=== PATIENT | female | born 1955 | race Caucasian/White ===

== ENCOUNTER → 2024-12-20 | Outpatient (CLI) | payer MEDICARE ==
--- NOTE | 2025-01-07 22:01 | CE ---
CARDIAC ELECTROPHYSIOLOGY REPORT STUDY: A 7-day Holter monitor. INDICATION: Rule out cardiac arrhythmia. The patient was monitored for 7 days. The baseline rhythm appeared to be sinus mechanism with average heart rate of 80 beats per minute, minimum heart rate of 62 beats per minute and maximum heart rate of 219 beats per minute. Rare PACs noted. The patient did have multiple episodes of paroxysmal atrial tachycardia with the longest episode of 60 beats with a fast heart rate of 220 beats per minute. PVCs were rare. The patient did have 1 episode of nonsustained ventricular tachycardia of 9 beats only. CONCLUSION: 1. Sinus rhythm as a baseline mechanism. 2. The patient did have only 1 episode of nonsustained ventricular tachycardia. 3. The patient did have a total of 17 episodes of paroxysmal atrial tachycardia with the longest episode of 50 beats and with a fast heart rate of 219 beats per minute. 4. No significant sinus pause or sinus arrest. MMODL / IJN: [id number] /
== END | disposition home or self-care (01) ==
LOC: RADECHMAIN 08:02
PROVIDERS: ATTEND Family Medicine
DX: I47.20 Ventricular tachycardia, unspecified (principal); I47.19 Other supraventricular tachycardia; I10 Essential (primary) hypertension; R55 Syncope and collapse
CPT/HCPCS: 93225

== ENCOUNTER → 2025-01-28 | Outpatient (CLI) | payer MEDICARE ==
--- NOTE | 2025-01-28 10:27 | US ---
EXAMINATION TYPE: US carotid duplex BILAT DATE OF EXAM: 01/28/2025 COMPARISON: NONE CLINICAL INDICATION: Female, 69 years old with history of E11.69 TYPE 2 DM WITH OTHER SPECIFIED COMPL ICATION; Syncope in 2023, type 2 diabetes, smoker, dizziness, hypertension, hyperlipidemia. Additional History: .... TECHNIQUE: Grayscale, color Doppler and spectral Doppler evaluation of the bilateral carotid systems and vertebral arteries. Indirect Doppler criteria was utilized. FINDINGS: EXAM MEASUREMENTS: RIGHT: Peak Systolic Velocity (PSV) cm/sec ----- Right CCA: 64.2 ----- Right ICA: 69.4 ----- Right ECA: 87.5 ICA/CCA ratio: 1.1 RIGHT: End Diastole cm/sec ----- Right CCA: 17.1 ----- Right ICA: 24.1 ----- Right ECA: 14.9 LEFT: Peak Systolic Velocity (PSV) cm/sec ----- Left CCA: 70.3 ----- Left ICA: 96.3 ----- Left ECA: 73.8 ICA/CCA ratio: 1.4 LEFT: End Diastole cm/sec ----- Left CCA: 17.1 ----- Left ICA: 29.2 ----- Left ECA: 0.0 VERTEBRALS (direction of flow): Right Vertebral: Antegrade Left Vertebral: Antegrade Rhythm: Normal [employer] NOTES: No elevated velocities. Plaque seen within bilateral bulbs. IMPRESSION: Right: No hemodynamically significant stenosis. Left: No hemodynamically significant stenosis. Criteria for Assigning % of Stenosis / Diameter reduction (Estimation based on the indirect measurements of the internal carotid artery velocities (ICA PSV). 1. Normal (no stenosis)=ICA PSV < 125 cm/s: ratio < 2.0: ICA EDV<40 cm/s. 2. Less than 50% stenosis=ICA PSV < 125 cm/s: ratio < 2.0: ICA EDV<40 cm/s. 3. 50 to 69% stenosis=ICA PSV of 125 to 230 cm/s: ration 2.0 ? 4.0: ICA EDV 40-100 cm/s. 4. Greater than 70% stenosis to near occlusion= ICA PSV > 230 cm/s: ratio > 4.0: ICA EDV > 100 cm/s. 5. Near occlusion= ICA PSV velocities may be low or undetectable: variable ratio and ICA EDV. 6. Total occlusion=unable to detect flow. [facility], , 01/28/2025 10:25 AM
--- NOTE | 2025-01-28 20:09 | CA ---
Transthoracic Echo Report Name: Jaki Avendano Age: 69 Gender: F : 1955 Exam Date: 01/28/2025 08:41 Exam Location: [facility] Ht (in): 61 Wt (lb): 135 Ordering Physician: Philippe Hernandez DO Attending/Referring Phys: Danika Mello PAC Cigar Brander Roselia Hung RDCS Procedure CPT: Indications: R42 R55 Cardiac Hx: Technical Quality: Good Contrast 1: Total Dose (mL): Contrast 2: Total Dose (mL): MEASUREMENTS (Male / Female) Normal Values 2D ECHO LV Diastolic Diameter PLAX 4.1 cm 4.2 - 5.9 / 3.9 - 5.3 cm LV Systolic Diameter PLAX 3.0 cm IVS Diastolic Thickness 0.8 cm 0.6 - 1.0 / 0.6 - 0.9 cm LVPW Diastolic Thickness 0.9 cm 0.6 - 1.0 / 0.6 - 0.9 cm LV Relative Wall Thickness 0.4 RV Internal Dim ED PLAX 3.5 cm LVOT Diameter 1.7 cm LA Systolic Diameter LX 3.0 cm 3.0 - 4.0 / 2.7 - 3.8 cm LV Diastolic Volume MOD BP 81.5 cm??? 67 - 155 / 56 - 104 cm??? LV Systolic Volume MOD BP 36.1 cm??? 22 - 58 / 19 - 49 cm??? LV Ejection Fraction MOD BP 55.7 % >= 55 % LV Cardiac Index MOD BP 2910.3 cm???/min???m??? LV Diastolic Volume MOD 4C 95.6 cm??? LV Systolic Volume MOD 4C 37.5 cm??? LV Ejection Fraction MOD 4C 60.8 % LV Cardiac Index MOD 4C 3726.4 cm???/min???m??? LV Diastolic Length 4C 7.2 cm LV Systolic Length 4C 5.7 cm LV Diastolic Volume MOD 2C 69.7 cm??? LV Systolic Volume MOD 2C 34.2 cm??? LV Ejection Fraction MOD 2C 50.9 % LV Cardiac Index MOD 2C 2271.8 cm???/min???m??? LV Diastolic Length 2C 7.1 cm LV Systolic Length 2C 5.9 cm LA Volume 49.2 cm??? 18 - 58 / 22 - 52 cm??? LA Volume Index 30.0 cm???/m??? 16 - 28 cm???/m??? DOPPLER AV Peak Velocity 122.2 cm/s AV Peak Gradient 6.0 mmHg AV Mean Velocity 76.3 cm/s AV Mean Gradient 2.7 mmHg AV Velocity Time Integral 24.7 cm LVOT Peak Velocity 101.1 cm/s LVOT Peak Gradient 4.1 mmHg LVOT Velocity Time Integral 18.9 cm LVOT Stroke Volume 42.3 cm??? LVOT Stroke Volume Index 26.4 ml/m??? LVOT Cardiac Index 2709.8 cm???/min???m??? AV Area Cont Eq vti 1.7 cm??? AV Area Cont Eq pk 1.8 cm??? MV Peak Velocity 150.6 cm/s MV Peak Gradient 9.1 mmHg MV Mean Velocity 105.9 cm/s MV Mean Gradient 4.8 mmHg MV Velocity Time Integral 32.2 cm MV Area PHT 4.3 cm??? Mitral E Point Velocity 100.1 cm/s Mitral A Point Velocity 151.2 cm/s Mitral E to A Ratio 0.7 MV Deceleration Time 157.9 ms TR Peak Velocity 238.6 cm/s TR Peak Gradient 22.8 mmHg Right Atrial Pressure 15.0 mmHg Pulmonary Artery Systolic Pressu 37.8 mmHg Right Ventricular Systolic Press 37.8 mmHg FINDINGS Left Ventricle Left ventricular ejection fraction is estimated at 55-60 %. Normal left ventricular systolic function with no obvious regional wall motion abnormalities. Left ventricular wall thickness normal. Right Ventricle Normal right ventricular size and function. Mild pulmonary hypertension. Right ventricular systolic pressure estimated at 38 mm hg. Right Atrium Normal right atrial size. Left Atrium Mildly increased left atrial volume. Mitral Valve Mitral annular calcification. No mitral stenosis, regurgitation or prolapse. Aortic Valve Thickened aortic valve without stenosis. No aortic regurgitation. Tricuspid Valve Structurally normal tricuspid valve. No tricuspid stenosis. Trace to mild tricuspid regurgitation. Pulmonic Valve Structurally normal pulmonic valve. No pulmonic stenosis. No pulmonic regurgitation. Pericardium No pericardial effusion. Aorta Normal size aortic root and proximal ascending aorta. CONCLUSIONS Normal biventricular systolic function Aortic sclerosis Mitral annular calcifications and thickened mitral valve leaflets An echodensity was identified on the anterior mitral leaflet with differential diagnosis of degenerative changes versus vegetation Previewed by: Dr. Dheeraj Wilder MD (Electronically Signed) Final Date: 28 January 2025 20:08
== END | disposition home or self-care (01) ==
LOC: RADUSWWP 08:30
PROVIDERS: ATTEND Family Medicine
DX: I70.0 Atherosclerosis of aorta (principal); E11.69 Type 2 diabetes mellitus with other specified complication; R42 Dizziness and giddiness; R55 Syncope and collapse; I34.81 Nonrheumatic mitral (valve) annulus calcification
CPT/HCPCS: 93306; 93880

== ENCOUNTER 2025-02-17 10:27 | Day surgery (SDC) | payer MEDICARE ==
[2025-02-15 13:57] VITALS: BMI 24.5
[~2025-02-17 10:27] MED LIST: MIDAZOLAM 2 MG/2 ML VIAL IV PRN; fentaNYL (PF) 50 MCG/ML 5 ML AMP IVP PRN
[2025-02-17] MEDS: IV FLUID CONTINUATION 1,000 ML IV ONE (10:50)
[2025-02-17 11:20] VITALS: RESP 16; TEMP 98.2
[2025-02-17 11:28] LABS: Glucose,Whole Blood 127 mg/dL (70-110)
[2025-02-17] MEDS: IV FLUID CONTINUATION 500 ML IV ONE (12:08)
[2025-02-17] MEDS: BENZOCAINE SPRAY 1 EACH MM SCH (12:44)
[2025-02-17] MEDS: MIDAZOLAM 2 MG/2 ML VIAL IVP ONE ×2 (12:44→13:39)
[2025-02-17] MEDS: fentaNYL (PF) 50 MCG/ML 2 ML AMP IVP ONE (13:08)
[2025-02-17 17:47] VITALS: BP 121/55; PULSE 70
--- NOTE | 2025-02-17 20:07 | P.PCN ---
Date of Procedure: 02/17/25 Operative Findings: TRANSESOPHAGEAL ECHOCARDIOGRAM REJECT OPENER AND FILLER: CLAUDIA DEL ANGEL MD, RPVI INDICATION: Evaluate the mitral SEDATION: Conscious sedation COMPLICATION: None LEVEL OF SEDATION Moderate with sedation length of 20-minute PROCEDURE DESCRIPTION: After obtaining an informed consent, the patient was brought to transesophageal echocardiogram room. Pulse oximetry and heart monitors were attached to the patient. The patient throat was sprayed using lidocaine. The patient was turned into left lateral position. After that a bite guard was placed. After an appropriate conscious sedation was initiated, the transesophageal echocardiogram was advanced through a bite guard into the mid esophagus. A 2-D echocardiogram images, color Doppler images, continuous wave images, pulse-wave images, of various cardiac structure were performed. After that the transesophageal echocardiogram probe was advanced into the stomach and fixed to obtain transgastric view was. The probe was brought into the mid esophagus. Inter-atrial septum was interrogated using 2D images, color Doppler images, and then contrast study. After that transesophageal echocardiogram was withdrawn out and upon withdrawing the descending thoracic aorta all the way up to the arch was evaluated. CONCLUSION: 1. Normal biventricular dimension and systolic 2. Mitral annular calcification with mild to moderate MR 3. Aortic sclerosis with no stenosis or insufficiency 4. Intact left atrial appendage 5. Intact interatrial septum 6. No pericardial effusion
== END 2025-02-17 15:15 | disposition home or self-care (01) ==
LOC: CATHCVL 10:27
PROVIDERS: ATTEND Internal Medicine Interventional Cardiology
DX: I47.19 Other supraventricular tachycardia (principal); I34.81 Nonrheumatic mitral (valve) annulus calcification; I34.0 Nonrheumatic mitral (valve) insufficiency; I10 Essential (primary) hypertension; E11.9 Type 2 diabetes mellitus without complications; E78.5 Hyperlipidemia, unspecified; I70.0 Atherosclerosis of aorta; I45.10 Unspecified right bundle-branch block; I65.23 Occlusion and stenosis of bilateral carotid arteries; F17.210 Nicotine dependence, cigarettes, uncomplicated; Z79.84 Long term (current) use of oral hypoglycemic drugs; Z79.899 Other long term (current) drug therapy; Z82.49 Family history of ischemic heart disease and other diseases of the circulatory system
CPT/HCPCS: 93312; 93320; 93325; J2250; J3010

== ENCOUNTER → 2025-03-25 | Outpatient (CLI) | payer MEDICARE ==
--- NOTE | 2025-03-25 15:04 | MM ---
Reason for Exam: Screening (asymptomatic). Last mammogram was performed 2 year(s) and 0 month(s) ago. Patient History: Menarche at age 12. First Full-Term at age 19. Postmenopausal. Niece had breast cancer under age 50. Risk Values: Yue 5 year model risk: 1.5%. NCI Lifetime model risk: 4.5%. Prior Study Comparison: 09/22/2019 Bilateral MG screening mammo w CAD - 2, [facility]. 06/18/2021 Bilateral Screening Mammogram, [facility]. 04/02/2023 Bilateral MG 3D screening mammo w/cad, [facility], [place]. Tissue Density: The breasts are heterogeneously dense, which may obscure small masses. Findings: Analyzed By CAD. Right breast: There is no suspicious group of microcalcifications or new suspicious mass. Left breast: There is no suspicious group of microcalcifications or new suspicious mass. Overall Assessment: Benign, BI-RAD 2 Management: Screening Mammogram of both breasts in [address] [facility] will attempt to contact patient to return for supplemental views and ultrasound if indicated. Patient should continue monthly self-breast exams. A clinical breast exam by your physician is recommended on an annual basis. This exam should not preclude additional follow-up of suspicious palpable abnormalities. Note on Yue scores and lifetime risk: 1. A Yue score greater than 3% is considered moderate risk. If this is the case, consider specialist referral to assess eligibility for a risk reducing agent. 2. If overall lifetime risk for the development of breast cancer is 20% or higher, the patient may qualify for future screening with alternating mammogram and breast MRI. [facility], , 03/25/2025 3:01 PM. Electronically signed and approved by: Shant Rahman DO
== END | disposition home or self-care (01) ==
LOC: RADMAMWWP 13:41
PROVIDERS: ATTEND Family Medicine
DX: Z12.31 Encounter for screening mammogram for malignant neoplasm of breast (principal); R92.333 Mammographic heterogeneous density, bilateral breasts; Z78.0 Asymptomatic menopausal state; Z80.3 Family history of malignant neoplasm of breast
CPT/HCPCS: 77063; 77067